=== PATIENT | male | born 2000 | race Asian ===

== ENCOUNTER 2022-09-26 08:00 | Outpatient (CLI) | payer OTHER ==
[2022-09-26 23:16] LABS: NEISSERIA GONORRHOEAE DNA NEGATIVE (NEGATIVE); TRICHOMONAS VAGINALIS DNA NEGATIVE (NEGATIVE)
[2022-09-26 23:35] LABS: CHLAMYDIA TRACHOMATIS DNA POSITIVE (NEGATIVE)
== END 2022-09-26 23:59 | disposition home or self-care (01) ==
LOC: LAB.N 08:00
PROVIDERS: ATTEND Registered Nurse
DX: R30.0 Dysuria (principal)
CPT/HCPCS: 87086; 87491; 87591; 87661